=== PATIENT | female | born 1950 | race Caucasian/White ===

== ENCOUNTER → 2018-02-20 | Outpatient (CLI) | payer MEDICARE, OTHER ==
[~2018-02-20] MED LIST: ASCO100083 PO; ASPI-587 PO; ATOR10TA PO; CA C1TAB26 PO; CITA10TA PO; CITA20TA12 PO; CLOP75TA28 PO; EST.625T PO; FISH OIL OMEGA1 EAC1 PO; FURO40TA PO; HAWT565C PO; HYDR-34 PO; HYDR12.56 PO; METO25TA6 PO; NITR0.4T SL; OMEG1CAP51 PO; POTA20TA15 PO; VITA1CAP PO; antidepressant PO
--- NOTE | 2018-02-20 12:42 | Diagnostic Imaging Report ---
PROCEDURE: MRI right joint upper extremity without contrast. TECHNIQUE: Multiplanar, multisequence non contrast-enhanced MRI of the right upper extremity was accomplished. INDICATION: Shoulder pain. No known discrete injury. COMPARISON: No priors for comparison. FINDINGS: There is abnormal globular thickening, heterogeneous elevated T2 signal intensity, and tearing of the supraspinatus tendon at the musculotendinous junction. Anteriorly, portion of the tear is full thickness extending from articular through the bursal surface. The majority of the tear however is partial thickness and accompanied by substantial and extensive supraspinatus tendinosis. There was no retraction however there is edema and fluid tracking along the superior margin of the supraspinatus muscle. The infraspinatus itself appeared unremarkable as did the subscapularis and teres. The long head of the biceps is intact centered within the bicipital groove. There is a glenohumeral joint effusion. No gross labral displacement is revealed at this nonenhanced exam. No loose body formation evident. Long head biceps is intact. No bone contusion or fracture pattern. AC joint shows degenerative change, otherwise normal. The deltoid attachment is intact. Small effusion is predominantly in the axillary pouch where no loose body was found. IMPRESSION: Full-thickness but incomplete tear of the supraspinatus at the musculotendinous junction with fluid and edema tracking proximally along the superior surface of the supraspinatus muscle belly. The remaining elements of the cuff were intact. There is bursal and joint effusion without loose body formation. Intact biceps. No bone contusion or fracture. Dictated by: Dictated on workstation # [id number]
== END ==
LOC: RAD 07:52
PROVIDERS: ATTEND Nurse Practitioner
DX: M75.111 Incomplete rotator cuff tear or rupture of right shoulder, not specified as traumatic (principal)
CPT/HCPCS: 73221

== ENCOUNTER → 2018-10-10 | Outpatient (CLI) | payer MEDICARE, OTHER ==
--- NOTE | 2018-10-10 20:19 | Diagnostic Imaging Report ---
PROCEDURE: US carotid duplex, bilateral. TECHNIQUE: Multiple real-time grayscale images were obtained over the carotid arteries in various projections, bilaterally. Additional duplex Doppler and color Doppler images were also obtained. DATE: October 10, 2018. INDICATION: 68-year-old female, history of carotid stenosis. COMPARISON: January 03, 2014. FINDINGS: Peak systolic velocity in the left common carotid artery measures 90 cm/s. Peak systolic velocity in the left external carotid artery measures 172 cm/s. Peak systolic velocity in the left proximal internal carotid artery measures 84 cm/s, 106 cm/s the mid left internal carotid artery and 92 cm/s distally. There is patent antegrade flow in the left vertebral artery. Peak systolic velocity in the right common carotid artery measures 106 cm/s. Peak systolic velocity in the right external carotid artery measures 106 cm/s. Peak systolic velocity in the proximal right internal carotid artery measures 112 cm/s, 71 cm/s in the mid right internal carotid artery and 98 cm/s distally. There is patent antegrade flow in the right vertebral artery. IMPRESSION: 1. Negative for hemodynamically significant right or left internal carotid artery stenosis. 2. Patent antegrade flow in the bilateral vertebral arteries. Parameters based on the consensus panel Falcon-Scale and Doppler ultrasound criteria published September 2003, Radiology, Volume 229. DOPPLER (peak systolic velocity M/S Right Left CCA 1.06 0.903 ICA Proximal 1.12 0.841 ICA Mid 0.707 1.06 ICA Distal 0.982 0.919 RATIO 1.1 1.2 ECA 1.06 1.72 VERT 0.589 0.88 Dictated by: Dictated on workstation # [id number]
== END ==
LOC: RAD 15:38
PROVIDERS: ATTEND Internal Medicine
DX: I65.21 Occlusion and stenosis of right carotid artery (principal)
CPT/HCPCS: 93880

== ENCOUNTER 2021-11-24 05:33 | Outpatient (CLI) | payer MEDICARE, OTHER ==
[~2021-11-24] VITALS: Ht 167.7 cm; Wt 79.4 kg
== END 2021-11-25 13:30 | disposition home or self-care (01) ==
LOC: PREOP 05:33
PROVIDERS: ATTEND Internal Medicine
DX: Z01.818 Encounter for other preprocedural examination (principal)

== ENCOUNTER 2021-12-03 08:08 | Day surgery (SDC) | payer MEDICARE, OTHER ==
--- NOTE | 2021-11-24 16:35 | HISTORY AND PHYSICAL ---
DATE OF SERVICE: COLONOSCOPY HISTORY AND PHYSICAL HISTORY: The patient is a 71-year-old white female presented to the office for followup of hyperlipidemia and hypertension with carotid artery disease, past history of right carotid endarterectomy. She also has a very strong family history for colon cancer. Her father and 2 brothers were all diagnosed with colon cancer, youngest 60, oldest early 70s. Her last colonoscopy was in 05/2016, which revealed no evidence for neoplasia. Because of her strong family history, advocated no longer than a 5-year interval, which has been slightly longer. She reports that she has been feeling well. She has noted no blood in her stool. No bowel habit change. She has had no TIA sounding symptoms. Denies angina. Since discontinuing antidepressant therapy, she continues to slowly lose weight, was down another pound despite the holiday season with no exacerbation, depression. PHYSICAL EXAMINATION: GENERAL: Reveals a white female appeared to be in no acute distress. VITAL SIGNS: Weight 175 pounds, blood pressure 140/80. HEENT: Unremarkable. Sclerae nonicteric. CHEST: Clear. CARDIOVASCULAR: Reveals a regular rate and rhythm. Soft 1 to 2/6 systolic ejection murmur heard best at left lower sternal border without evidence of pulsus, parvus or tardus. No S3 or S4 noted. ABDOMEN: Soft, supple without mass, organomegaly or tenderness. EXTREMITIES: Reveal no cyanosis, clubbing or edema. ASSESSMENT AND PLAN: 1. Hypertension, under good control. 2. Hyperlipidemia, has been under good control on statin therapy. Blood tests reviewed with the patient. 3. Strong family history of colon cancer. The patient is being set up for screening colonoscopy as it has been almost 5-1/2 years since her last procedure. We will see her back for routine followup in 4 months. Job ID: [id number] DocumentID: [id number] Dictated Date: 11/10/2021 16:42:50 Clinical Unit Coordinator Date: 11/10/2021 16:55:30 Dictated By: PACHECO KRISHNAMURTHY MD
[~2021-12-03] VITALS: Ht 167.7 cm; Wt 79.4 kg
[2021-12-03] MEDS ORDERED: LACTATED RINGERS 1,000 ML IV ONE (08:13)
[2021-12-03] MEDS ORDERED: LACTATED RINGERS 1,000 ML IV STA (08:16)
[2021-12-03 08:20] VITALS: BP 187/95
--- NOTE | 2021-12-03 08:44 | Pre-Op Note & Conscious Sedat ---
Pre-Operative Progress Note H&P Reviewed The H&P was reviewed, patient examined and no changes noted. Date H&P Reviewed: Dec 03, 2021 Time H&P Reviewed: 08:44 Conscious Sedation Pre-Proced ASA Score 2 For ASA 3 and 4: Consider anesthesia and medical clearance. Also, for patients with a history of failed moderate sedation consider anesthesia. Airway Lungs Heart ASA score ASA 1: a normal healthy patient ASA 2: a patient with a mild systemic disease (mid diabetes, controlled hypertension, obesity ASA 3: a patient with a severe systemic disease that limits activity (angina, COPD, prior Myocardial infarction) ASA 4: a patient with an incapacitating disease that is a constant threat to life (CHF, renal failure) ASA 5: a moribund patient not expected to survive 24 hrs. (ruptured aneurysm) ASA 6: a declared brain- patient whose organs are being harvested. For emergent operations, add the letter E after the classification Mallampati Classification Grade 2 Sedation Plan Analgesia, Amnesia, Plan communicated to team members, Discussed options with patient/fam, Discussed risks with patient/fam The patient is an appropriate candidate to undergo the planned procedure, sedation, and anesthesia. The patient immediately re-assessed prior to indication. PACHECO KRISHNAMURTHY MD Dec 03, 2021 08:44
[2021-12-03] MEDS ORDERED: PROPOFOL INJECTION 50 ML IV ONE (09:19)
[2021-12-03] MEDS ORDERED: MIDAZOLAM 2 MG/2 ML (VERSED) VIAL ONE (09:19)
[2021-12-03 09:55] VITALS: BP 99/56
[2021-12-03 10:00] VITALS: BP 97/55
[2021-12-03 10:20] VITALS: BP 136/77
[2021-12-03 10:35] VITALS: BP 125/72
--- NOTE | 2021-12-03 11:54 | Anesthesia-General Post-Op ---
MAC Patient Condition Mental Status/LOC: Same as Preop Cardiovascular: Satisfactory Nausea/Vomiting: Absent Respiratory: Satisfactory Pain: Controlled Complications: Absent Post Op Complications Complications None Follow Up Care/Instructions Patient Instructions None needed. Anesthesiology Discharge Order Discharge Order Patient is doing well, no complaints, stable vital signs, no apparent adverse anesthesia problems. No complications reported per nursing. ABISAI BOWERS CRNA Dec 03, 2021 11:54
--- NOTE | 2021-12-03 19:00 | OPERATIVE REPORT ---
DATE OF SERVICE: COLONOSCOPY SUMMARY PRIMARY CARE PROVIDER: Pacheco Krishnamurthy MD. INDICATION FOR THE PROCEDURE: Screening, strong family history for colon cancer. DESCRIPTION OF PROCEDURE: The patient was placed in the left lateral decubitus position. Prior to undergoing colonoscopy, digital rectal evaluation was performed. Anal sphincter tone was normal and the perianal reflexes intact. No abnormalities were noted on digital inspection of anal canal or distal rectal vault. The colonoscope was then inserted into the rectum and under direct visualization advanced to cecum. Cecum was identified by identification of the ileocecal valve and cecal strap. Photographic documentation was obtained. Careful inspection was made as the colonoscope withdrawn. Quality of prep was fair. FINDINGS: There was no evidence for internal or external hemorrhoids. The rectum, sigmoid colon, descending colon, splenic flexure, transverse colon, hepatic flexure, ascending colon, and cecum were unremarkable with no evidence for neoplasia, diverticular disease or other abnormalities, say for 2 small grade I appearing internal hemorrhoids. ASSESSMENT: Two grade I internal hemorrhoid complexes were noted with otherwise normal colonoscopy to the cecum. Considering this patient's strong family history for colon cancer, we will be advocating consideration for repeat surveillance colonoscopy in 5 years. Job ID: [id number] DocumentID: [id number] Dictated Date: 12/03/2021 10:39:27 Tipping Machine Operator Automatic Date: 12/03/2021 15:07:23 Dictated By: PACHECO KRISHNAMURTHY MD
== END 2021-12-03 10:35 | disposition home or self-care (01) ==
LOC: ENDO 08:08
PROVIDERS: ATTEND Internal Medicine
DX: Z12.11 Encounter for screening for malignant neoplasm of colon (principal); K64.0 First degree hemorrhoids; I25.10 Atherosclerotic heart disease of native coronary artery without angina pectoris; I10 Essential (primary) hypertension; E78.5 Hyperlipidemia, unspecified; G47.33 Obstructive sleep apnea (adult) (pediatric); F32.A Depression, unspecified; K58.9 Irritable bowel syndrome, unspecified; Z79.82 Long term (current) use of aspirin; Z79.899 Other long term (current) drug therapy; Z80.0 Family history of malignant neoplasm of digestive organs

== ENCOUNTER → 2022-03-25 | Outpatient (CLI) | payer MEDICARE ==
--- NOTE | 2022-03-25 11:39 | Diagnostic Imaging Report ---
EXAMINATION: Lumbosacral spine 2 or 3 views HISTORY: Fall. Back pain. COMPARISON: None available. FINDINGS: There is no acute fracture or dislocation of the lumbar spine. There is left convexity curvature of the lumbar spine centered at the L2-L3 level. The vertebral body heights are well maintained. Mild degenerative changes are present in the lumbar spine. The included soft tissues are unremarkable. There is calcified aortic atherosclerotic plaque. IMPRESSION: 1. No acute fracture or dislocation in the lumbar spine. Dictated by: Dictated on workstation # [id number]
--- NOTE | 2022-03-25 11:40 | Diagnostic Imaging Report ---
CLINICAL HISTORY: Fall. Pelvic pain. COMPARISON: None. TECHNIQUE: Single AP view of the pelvis is obtained. FINDINGS: There is no acute fracture or dislocation of the pelvis. Alignment is anatomic. The imaged joint spaces are preserved. IMPRESSION: 1. No acute fracture or dislocation in the pelvis. Dictated by: Dictated on workstation # [id number]
== END ==
LOC: RAD 11:01
PROVIDERS: ATTEND Nurse Practitioner Family
DX: M54.50 Low back pain, unspecified (principal); R10.2 Pelvic and perineal pain; W19.XXXA Unspecified fall, initial encounter
CPT/HCPCS: 72100; 72170

== ENCOUNTER → 2022-05-12 | Outpatient (CLI) | payer MEDICARE ==
--- NOTE | 2022-05-12 10:40 | Diagnostic Imaging Report ---
INDICATION: Back pain Lumbar spine AP and lateral views of lumbar spine are obtained There appear to be old sclerotic compression fractures of the superior endplates of L1, L2 and L3. The calculus in the superior endplates of L1 and L2 are new since 03/25/2022. Alignment is normal. Intervertebral disc spaces are normal. IMPRESSION: Nonacute fracture superior endplates of L1, L2 and L3. Dictated by: Dictated on workstation # [id number]
== END ==
LOC: RAD 09:38
PROVIDERS: ATTEND Neurological Surgery
DX: M48.56XA Collapsed vertebra, not elsewhere classified, lumbar region, initial encounter for fracture (principal)
CPT/HCPCS: 72100

== ENCOUNTER → 2022-06-28 | Outpatient (CLI) | payer MEDICARE ==
--- NOTE | 2022-06-28 13:46 | Diagnostic Imaging Report ---
INDICATION: 72-year-old asymptomatic postmenopausal female COMPARISON: None available FINDINGS: AP Spine L1-L4: [BMD (g/cm2): 1.053] [T-Score: -1.2] [Z-Score: 0.0] [BMD Previous: NA] [BMD % Change: NA] LT Hip Neck: [BMD (g/cm2): 0.756] [T-Score: -2.0] [Z-Score: -0.5] LT Hip Total: [BMD (g/cm2):0.857] [T-Score:-1.2] [Z-Score: 0.0] [BMD Previous: NA] [BMD % Change: NA] RT Hip Neck: [BMD (g/cm2):0.839] [T-Score:-1.4] [Z-Score:0.1] RT Hip Total: [BMD (g/cm2):0.926] [T-score:-0.6] [Z-Score:0.6] [BMD Previous:NA] [BMD % Change:NA] *Indicates significant change from prior examination based on 95% confidence level. World Health Organization criteria for BMD interpretation classify patients as Normal (T-score at or above -1.0), Osteopenic (T-score between -1.0 and -2.5) or Osteoporotic (T-score at or below -2.5). LIMITATIONS AND MODIFICATION: None. FRACTURE RISK (FRAX SCORE): The ten year probability of (%): Major Osteoporotic Fracture: [19.4] Hip Fracture: [4.1] IMPRESSION: 1. Osteopenia (Low bone mass). 2. Baseline examination. 3. See below National Osteoporosis Foundation guidelines on when to potentially initiate pharmacologic therapy. Based on the National Osteoporosis Foundation Guidelines, pharmacologic treatment should be initiated in any of the following, unless clinical conditions suggest otherwise: * Any patient with prior fragility fracture of the hip or vertebrae. A spine fracture indicates 5X risk for subsequent spine fracture and 2X risk for subsequent hip fracture. * Osteoporosis (T-score <-2.5). * Postmenopausal women and men age 50 and older with low bone mass/osteopenia (T-score between -1.0 and -2.5) by DXA and 10-year major osteoporotic fracture greater than 20% or a 10-year probability of hip fracture greater than 3%. These fracture risks are supplied above in the FRAX score, if applicable. * Clinician judgement and/or patient preferences may indicate treatment for people with 10-year fracture probabilities above or below these levels. Dictated by: Dictated on workstation # [id number]
== END ==
LOC: RAD 09:30
PROVIDERS: ATTEND Internal Medicine
DX: M81.8 Other osteoporosis without current pathological fracture (principal); M85.80 Other specified disorders of bone density and structure, unspecified site; M48.56XA Collapsed vertebra, not elsewhere classified, lumbar region, initial encounter for fracture; Z78.0 Asymptomatic menopausal state
CPT/HCPCS: 77080

== ENCOUNTER → 2022-07-13 | Outpatient (CLI) | payer MEDICARE ==
--- NOTE | 2022-07-13 18:17 | Diagnostic Imaging Report ---
INDICATION: Follow-up lumbar fracture. COMPARISON: 05/12/2022. FINDINGS: Frontal and lateral radiographic views of the chest were obtained and again show compression fracture involving the superior endplate of the L2 vertebral body. There does appear to be extension into the anterior and posterior vertebral body wall. Vertebral body height loss is stable compared to prior exam. Note is also made of sclerotic deformity to the superior endplates of L1 and L3. These are stable as well. No new compression deformity of the lumbar spine is identified. Static alignment is stable as well. There is no evidence of jumped facets. Mild multilevel degenerative changes are also present. Included small bowel loops are nondistended. Extensive calcified aortic atherosclerosis is noted. IMPRESSION: 1. Stable compression deformities of L1-L3, as described above. 2. No new acute deformity to the lumbar spine. Dictated by: Dictated on workstation # [id number]
== END ==
LOC: RAD 12:42
PROVIDERS: ATTEND Neurological Surgery
DX: M48.56XA Collapsed vertebra, not elsewhere classified, lumbar region, initial encounter for fracture (principal); M47.816 Spondylosis without myelopathy or radiculopathy, lumbar region
CPT/HCPCS: 72100